=== PATIENT | male | born 1975 | race Caucasian/White ===

== ENCOUNTER 2023-09-04 09:30 | Outpatient (CLI) | payer SELFPAY ==
--- NOTE | 2023-09-08 12:02 | WPDHOLTEREM ---
Holter/Event Monitor Holter/Event Monitor Date of procedure: 09/04/23 Holter/Event Procedure: 48 Hr Holter Monitor Indications: Palpitations Conclusion: 1. 48 hour holter monitor on 09/04/23. 2. Underlying rhythm is sinus rhythm. HR range 45-148 bpm; average 79 bpm. HR at 45 bpm was at 04:48. HR at 148 bpm was at 16:35. 3. There are 7 premature supraventricular complexes and 3 supraventricular couplets. No supraventricular tachycardia. 4. There are 3, 272 premature ventricular complexes and 136 ventricular trigeminy. No ventricular tachycardia. 5. No sinoatrial or atrioventricular blocks. No significant pauses greater than 2 seconds. 6. Patient reports symptoms of palpitations which demonstrate sinus rhythm, HR range 75-105 bpm and 1 PVC.
== END 2023-09-04 09:31 | disposition home or self-care (01) ==
PROVIDERS: PCP Physician Assistant Medical; Visit Provider Physician Assistant Medical
DX: R00.2 Palpitations (principal)
CPT/HCPCS: 93225; 93226